=== PATIENT | male | born 1980 | race Caucasian/White ===

== ENCOUNTER 2021-01-23 18:57 | Emergency (ER) | payer OTHER, SELFPAY ==
[2021-01-23 19:07] VITALS: BP 150/88; PULSE 67; RESP 14; TEMP 37.2; O2SAT 97; BMI 24.6
--- NOTE | 2021-01-23 20:06 | PC.NURSE ---
Noticed arm discomfort/muscle pain after a hard workout on Wednesday. Now noticing swelling at top of forearm that is moving distally. Has not taken anything for pain.
--- NOTE | 2021-01-23 20:21 | ED_ITS ---
HPI - Extremity Problem General Chief complaint: Extremity Problem,Nontraumatic Stated complaint: bilat elbow swelling, feels hot to touch Time Seen by Provider: 01/23/21 19:44 Source: patient Mode of arrival: Ambulatory Limitations: no limitations History of Present Illness HPI Narrative: 40M nonsmoker without chronic medical problems presents with pain and swelling in both elbows for the past few days. He states he participated in a [employer] tradition with some [employer] friends in which they ran a few miles and did 100 pullups and pushups. This is out of the ordinary and excessive for his normal workout routine. He denies any specific direct trauma. He denies any fever or chills. He states that the swelling seems to be improving and though his elbows were both slightly warm to the touch earlier in the day they no longer are. He does have a history of cellulitis previously and admittedly was a bit concerned that that may be what is happening. He is otherwise well and free of complaint. He denies any chest pain or shortness of breath. He does state that although he has some ongoing discomfort he was able to compete in an ultimate frisbee-like event earlier today. MD Complaint: extremity pain, extremity swelling and joint paint Onset (ago): day(s) Pain Consistency: constant Location: left, right and upper extremity Quality: aching Radiation: none Relieving factors: rest Exacerbating factors: range of motion and palpation Associated symptoms: denies other symptoms Related Data Allergies Allergy/AdvReac Type Severity Reaction Status Date / Time No Known Drug Allergies Allergy Verified 01/23/21 19:12 Review of Systems Constitutional Constitutional: Denies chills, Denies fatigue, Denies fever(s), Denies frequent falls, Denies lethargy and Denies weakness Eyes Eyes: Denies change in vision, Denies eye discharge, Denies irritation and Denies loss of vision ENT Ears, Nose, Mouth, and Throat: Denies change in voice, Denies dizziness, Denies neck pain, Denies sore throat and Denies throat swelling Cardiovascular Cardiovascular: Denies chest pain, Denies irregular heart rhythm, Denies lightheadedness, Denies palpitations, Denies dyspnea, Denies dyspnea on exertion and Denies orthopnea Respiratory Respiratory: Denies cough, Denies dyspnea, Denies dyspnea on exertion and Denies wheezing Gastrointestinal Gastrointestinal: Denies abdominal pain, Denies change in bowel habits, Denies diarrhea, Denies nausea and Denies vomiting Musculoskeletal Musculoskeletal: Reports arthralgias, Reports joint swelling, Denies neck pain and Denies numbness Integumentary/Breasts Skin/Breast: Denies pruritus, Denies erythema, Denies rash and Denies wounds Neurologic Neurologic: Denies behavioral changes, Denies confusion, Denies dizziness, Denies frequent falls, Denies loss of vision, Denies numbness and Denies weakness Psychiatric Psychiatric: Denies anxiety, Denies behavioral changes, Denies confusion, Denies depression, Denies homicidal ideation and Denies suicidal ideation Endocrine Endocrine: Denies fatigue, Denies flushing and Denies palpitations Hematologic/Lymphatic Hematologic/Lymphatic: Denies easy bruising Allergic/Immunologic Allergic/Immunologic: Denies urticaria, Denies throat swelling and Denies wheezing Patient History Social History Smoking Status: Unknown if ever smoked Smoking Status: Unknown if ever smoked alcohol intake frequency: holidays/special occasions only Substance Use Type: does not use Exam Narrative Exam Narrative: GEN: AOx3 and in mild distress EYES: Pupils are equal, round, and reactive to light and accommodation. Extraoccular muscles are intact bilaterally. There is no subconjunctival hemorrhage or exudate. CHEST: Lungs are clear to auscultation bilaterally and free of wheezes, rales, or rhonchi. Heart rate is regular rhythm, there are no murmurs, clicks, rubs, or gallops. There is no chest wall tenderness. ABD: Abdomen is soft and nontender. There is no guarding or rebound. Bowel sounds are normal in all 4 quadrants. There is no mass or organomegaly. EXT: Full painless range of motion of bilateral elbows including flexion, extension as well as pronation and supination. No erythema or red streaks. Neurovascular status intact. There is mild swelling and warmth but minimal if any tenderness to palpation. SKIN: Warm, pink, and dry. No erythema or rash Initial Vital Signs Initial Vital Signs: Vital Signs Temperature 99.0 F 01/23/21 19:07 Pulse Rate 67 01/23/21 19:07 Respiratory Rate 14 01/23/21 19:07 Blood Pressure 150/88 H 01/23/21 19:07 Pulse Oximetry 97 06/03/21 19:07 Course Vital Signs Vital signs: Vital Signs - 8 hr 01/23/21 19:07 01/23/21 21:03 Temperature 99.0 F Pulse Rate 67 59 L Respiratory Rate 14 18 Blood Pressure 150/88 H 134/82 Pulse Oximetry 97 99 MDM - Extremity (Nontraumatic) MDM Narrative Medical decision making narrative: Multiple diagnoses considered but not limited to cellulitis, DVT, gout, overuse injury. Infection, gout and DVT thought unlikely given the bilateral nature, lack of redness, lack of painful range of motion. Given the exertion he into heard on Wednesday it certainly seems most likely this is an overuse injury. Return precautions given and questions a nswered to his apparent satisfaction Discharge Plan Departure Patient Disposition: Home Clinical Impression: Tendinopathy of elbow Qualifiers: Laterality: unspecified laterality Qualified Code(s): M67.929 - Unspecified disorder of synovium and tendon, unspecified upper arm Instructions: Tendinopathy Activity Restrictions/Additional Instructions: *You have been diagnosed with [bilateral elbow tendinopathy, likely overuse type injury from the Lai you completed on Wednesday. Clot and infection considered but thought unlikely given bilateral appearance, lack of redness] *What to do: *Please continue to take your regular medications as directed. [ ] New medication prescriptions sent to your pharmacy: [ ] [ ] New medication written as a paper prescription [x ] No new medications given *Please follow up with your primary care provider in 2-3 days, call for an appointment. Let them know you were seen in the Emergency Department and that we ask that you be seen in follow up. We will electronically transmit a record of today's note if your PCP is in our system *If you do not have a primary care provider please contact the [facility] Resource line at [phone]. They will ask some questions about your medical history and help get you set up with a doctor in the community. *Return to Emergency Department if you should have any new, worsening or concerning symptoms, such as [fever greater than 101 F, shaking chills, worsening pain, persistent vomiting or other bothersome symptoms]
[2021-01-23 21:03] VITALS: BP 134/82; PULSE 59; RESP 18; O2SAT 99
== END 2021-01-23 21:04 | disposition home or self-care (01) ==
PROVIDERS: Emergency Provider Emergency Medicine
DX: M67.929 Unspecified disorder of synovium and tendon, unspecified upper arm (principal)
CPT/HCPCS: 99281

== ENCOUNTER → 2022-01-06 15:33 | Outpatient (CLI) | payer OTHER, SELFPAY ==
[2022-01-06 16:14] LABS: COVID19 -Nasal RAPID Negative (Negative)
== END ==
PROVIDERS: Visit Provider Surgery
DX: Z20.822 Contact with and (suspected) exposure to COVID-19 (principal); Z01.812 Encounter for preprocedural laboratory examination
CPT/HCPCS: 87635; C9803

== ENCOUNTER 2022-01-07 11:36 | Day surgery (SDC) | payer OTHER, SELFPAY ==
[2022-01-07] VITALS (9 sets, daily range): BP systolic 106–138; BP diastolic 59–84; PULSE 51–65; RESP 10–16; TEMP 36.4–36.6; O2SAT 98–100; BMI 25.7
[2022-01-07] MEDS: LACTATED RINGERS 1,000 ML 100 ML IV (12:09)
--- NOTE | 2022-01-07 15:09 | PM.PREOP ---
Pre-operative Note Interval Note History & Physical reviewed/Exam performed by Physician: Yes Changes to H&P: No
[2022-01-07] MEDS: CEFAZOLIN 2 GM/20 ML SYRINGE IV (15:34)
--- NOTE | 2022-01-07 15:39 | SUR.OPER ---
Supine on padded OR bed, head on pillow, arms secured on padded arm boards at <90 degrees abduction, legs uncrossed, safety belt at thigh, tape over blanket over lower legs.
[2022-01-07] MEDS: BUPIVACAINE 0.25% (PF) VIAL 30 ML INJ (15:46)
--- NOTE | 2022-01-07 16:10 | P.OP_ITS ---
Operative Date/Time/Diagnoses Date of procedure: 01/07/22 Time of procedure: 16:10 Pre-op diagnosis: left inguinal hernia Post-op diagnosis: same Procedure & Clinicians Procedure: open left inguinal hernia repair with mesh Same procedure as scheduled: Yes Indications: reducible symptomatic inguinal hernia Surgeon: Shorty Dennis Yes if Unassisted: Yes Anesthesia Type: General Operative Notes Findings: direct floor defect. No indirect hernia Specimen(s): none sent Estimated Blood Loss (mL): 10 Procedure in detail: The patient was placed supine on the table and bilateral lower extremity compression devices were applied. Anesthesia was induced they were intubated with an LMA and received Ancef. A time-out was performed. They were prepped and draped in sterile fashion. The left external inguinal ring and the anterior superior iliac crest were identified and marked. 1 finger breath above the inguinal ligament the skin was infiltrated with 0.25% bupivacaine. The skin incision was made here and the subcutaneous tissues were divided with electrocautery exposing the external oblique aponeurosis which was then opened along the direction of its fibers. Using blunt dissection the internal oblique aporneurosis was from the external oblique upper leaflet to identify the iliohypogastric nerve. Using a kittner the cord was carefully dissected away from the inguinal canal adjacent to the pubic tubercle. The cord including the vas deferens, testicular bloody supply, ilioguinal and genital nerve were encircled with a [place] drain. A direct floor defect was identified and it was reduced into the abdomen and the internal oblique aporneuorsis was approximated to the inguinal ligament with Ethibond suture to reapproximate the floor over a plug of mesh. The cremasteric fibers surrounding the cord were divided using electrocautery adjacent to the internal ring.. The vas deferens and the testicular vessels were preserved and protected. There was no indirect hernia. I selected a 7x 15 cm lightweight Pro Loop hernia mesh. The inferior medial aspect of the mesh was anchored to insertion of the rectus muscle to the pubic tubercle such that there was approximately 2 cm of tubercle overlap with Ethibond and then was run continuously along the inferior edge of the mesh to the shelving edge of the inguinal ligament. Interrupted 3 0 Vicryl suture was used to anchor the superior aspect of the mesh to the conjoined tendon in several places. The tails were then reapproximated loosely around the spermatic cord. The tails of the mesh were then tucked under the external oblique aponeurosis. The repair was checked for hemostasis. The wound was irrigated with sterile saline. The external oblique aponeurosis was reapproximated in a running fashion using 3 0 Vicryl. The subcutaneous tissues were reapproximated with 3 0 Vicryl skin closed with 4 0 Monocryl followed by the application of Dermabond. At the end of the operation I ensured that both testicles were within the scrotum. The sponge instrument count at the end operation was correct. The patient emerged from anesthesia was extubated and transferred to the postoperative care unit in stable condition. A total of 30 ml of of 0.25% bupivicaine was used to infiltrate the skin. Complications: none Post-operative Condition: stable Disposition: same day surgery
[2022-01-07] MEDS: OXYCODONE IR 5 MG TABLET PO (16:45)
[2022-01-07] MEDS: ACETAMINOPHEN 325 MG TABLET 650 MG PO (16:45)
== END 2022-01-07 17:29 | disposition home or self-care (01) ==
PROVIDERS: Referring Provider Surgery; Visit Provider Surgery
PROC: (CPT 49505; principal; 2022-01-07 13:15)
DX: K40.90 Unilateral inguinal hernia, without obstruction or gangrene, not specified as recurrent (principal)
CPT/HCPCS: 49505; 82962; J0690; J1100; J1885; J2405; J2704; J3010